=== PATIENT | male | born 1995 | race Caucasian/White ===

== ENCOUNTER 2016-11-04 11:36 | Emergency (ER) | payer BC ==
--- NOTE | 2016-11-04 12:13 | ERNOTE ---
[facility] Date of Service: 11/04/16 Presenting Symptoms: other - right upper jaw pain Time Seen by Provider: 11/04/16 11:46 Source: patient, family Exam Limitations: no limitations - Immun/Allergies/Home Medications Immunizations: IMMUNIZATION HX Immunizations Up to Date Yes History of Influenza Vaccine Yes Hx Pneumococcal Vaccination No Allergies/Adverse Reactions: Allergies Allergy/AdvReac Type Severity Reaction Status Date / Time No Known Allergies Allergy Unverified 11/04/16 11:44 Home Medications: HOME MEDICATIONS Naproxen [Naprosyn] 500 mg PO BID PRN #60 tab 11/04/16 [Last Taken Unknown] - Pain Score Pain Score #1 Pain Score: 7 - History of Present Illness Narrative: Patient is a 21 year old male who presents to the ED with complaints of right upper jaw pain. Patient states pain is right under right ear and radiates into his right upper jaw. Denies popping or clicking noises, denies trauma, injury or dislocation. Denies ear pain, fever or chills or signs of infection. Date (Duration): 11/03/16 Severity: Present: mild ENT Location: Present: ear (R) - radiating into right upper jaw Prearrival Treatment: Present: no prearrival treatment Modifying Factors - Improves: Reports: nothing Modifying Factors - Worsens: Reports: other - yawning and opening mouth wide Associated Symptoms - ENT: Reports: tooth pain - right upper jaw. Denies: jaw swelling, foreign body, trauma Review of Systems - Review of Systems Constitutional: Present: no symptoms reported. Absent: recent illness, fever EYE: Present: no symptoms reported. Absent: eye pain, eye discharge ENT: Present: ear pain - right ear. Absent: ear discharge, pulling on ears, nose pain, nose congestion, nasal drainage, sore throat Respiratory: Present: no symptoms reported Cardiology: Present: no symptoms reported Gastrointestinal/Abdominal: Present: no symptoms reported Genitourinary: Present: no symptoms reported Musculoskeletal: Present: joint pain - right jaw Skin: Present: no symptoms reported Neurological: Present: no symptoms reported Endocrine: Present: no symptoms reported Hematologic/Lymphatic: Present: no symptoms reported Psych: Present: no symptoms reported - Patient's Past Medical History Patient History - Medical: Anxiety Patient History - Cardiac/Respiratory: No pertinent hx Patient History - Cancer: No Hx of Cancer Patient History - Surgical Procedures: No surgical history - Social History Living Situations: home Psych History: Hx of Anxiety Smoking Status: Never smoker Do you dip or chew tobacco: No Alcohol Use: rarely Drug Use: none - Immunizations Immunizations Up to Date: Yes Hx Pneumococcal Vaccination: No History of Influenza Vaccine: Yes Physical Exam - Physical Exam General Appearance: Present: wd/wn, alert, no apparent distress Eye Exam: Normal inspection: bilateral, PERRL: bilateral Ears, Nose, Throat: Present: normal ENT inspection, normal pharynx, other - no obvious dental caries, good dentition. Absent: nasal congestion, sinus pain/ drainage, pharyngeal erythema, pharyngeal swelling, tonsillar exudate, tonsillar swelling, dry mucous membranes Neck: Present: normal inspection, nontender, supple, full range of motion. Absent: limited range of motion, lymphadenopathy (R), lymphadenopathy (L) Respiratory: Present: no respiratory distress, normal breath sounds, no accessory muscle use, chest nontender, lungs clear Cardiovascular/Chest: Present: regular rate, rhythm, no murmur, normal peripheral pulses Peripheral Pulses: N=norm/S=strong/W=weak/B=bound/A=absent: Carotid (R): Normal , Carotid (L): Normal Gastrointestinal/Abdominal: Present: normal bowel sounds, nontender, nondistended, soft, no organomegaly Rectal Exam: Present: deferred Male Genitals Exam: Present: deferred Back Exam: Present: normal inspection, normal range of motion, no CVA tenderness Extremity Exam: Present: normal inspection, non-tender, normal range of motion, no edema Neurological Exam: Present: alert, oriented, normal mood/affect, no motor/ sensory deficits Skin Exam: Present: normal color, warm/dry Lymphatic Exam: Present: no adenopathy ED Progress - Vital Signs Patient's Vital Signs:: I have reviewed the patient's vital signs. Vital Signs: Vital Signs 11/04/16 11:40 Temperature 36.8 C Pulse Rate 87 Respiratory 15 Rate Blood Pressure 147/97 O2 Sat by Pulse 97 Oximetry - Progress/Reassessment Chief Complaint: Dental Problem Progress:: Unchanged Departure Clinical Impression: Temporomandibular joint (TMJ) pain Qualifiers: Laterality: right Qualified Code(s): M26.621 - Arthralgia of right temporomandibular joint - Departure Disposition: Home self-care Condition: Good Instructions: Jaw Range of Motion Exercises, Temporomandibular Joint Syndrome Additional Instructions: Avoid excessive chewing or hard/sharp foods. Use soft diet for 1-2 weeks to allow jaw to rest. Avoid gum chewing. Use moist heat for pain. Literature given to help strengthen jaw muscles and decrease pain. May want to consider mouth guard at night while sleeping to avoid any grinding of teeth. Referrals: Franco Conroy DO [Staff Physician] - Prescriptions: Naproxen [Naprosyn] 500 mg PO BID PRN #60 tab PRN Reason: Pain
--- OUTSIDE RECORDS SUMMARY | 2016-11-04 12:17 | XMS REPORT | Continuity of Care Document ---
:1995 Author Organization [facility] ([facility]) Address [address] [place] [address] Phone [phone] Care Team Providers Name Role Phone Provider, No-Primary Care Primary Care Provider Unavailable Source Comments This disclosure is being made pursuant to the Care Everywhere program, applicable federal and state laws, and may not contain all informaitonavailable regarding this patient.[facility] ([facility]) Active Allergies and Adverse Reactions No Known Allergies Current Medications No known medications Active Problems No known active problems Social History Tobacco Use Types Packs/Day Years Used Date Never Smoker Smokeless Tobacco: Never Used Alcohol Use Drinks/Week oz/Week Comments No 04/15/13 shw blue card Last Filed Vital Signs Vital Sign Reading Time Taken Blood Pressure 129/74 04/15/2013 3:35 PM CDT Pulse 83 04/15/2013 3:35 PM CDT Temperature 37 C (98.6 F) 04/15/2013 3:35 PM CDT Respiratory Rate 20 04/15/2013 3:35 PM CDT Height - - Weight - - Body Mass Index - - Oxygen Saturation 97% 04/15/2013 3:35 PM CDT Plan of Care Health Maintenance Due Date Last Done Comments Hepatitis B Vaccine (1 of 3 - Primary Series) 1994 HPV Vaccine (1 of 3 - Male 3 Dose Series) 2005 Tdap Vaccine 2005 Meningococcal Vaccine (1 of 1) 2010 Lipid Disorder Screening 2012 MMR Vaccine 2012 Td Vaccine 2012 Varicella Vaccine (1 of 2 - Adult - No Evidence of 2012 Immunity) Influenza Vaccine: Seasonal (#1) 01/16/2016 Results from Last 3 Months Not on file
[2016-11-04 12:21] VITALS: BP 131/73
== END 2016-11-04 12:19 | disposition home or self-care (01) ==
LOC: ER 11:36
DX: M26.621 Arthralgia of right temporomandibular joint (principal)